=== PATIENT | male | born 1970 | race Caucasian/White ===

== ENCOUNTER 2018-03-03 09:37 | Inpatient (IN) | payer BC, OTHER ==
[~2018-03-03] VITALS: Ht 180.3 cm; Wt 102.7 kg
[2018-03-03 10:31] LABS: BASOPHILS ABSOLUTE AUTO 0.02 K/mm3 (0.00-0.23); BASOPHILS PERCENT AUTO 0 % (0-2); EOSINOPHILS PERCENT AUTO 0 % (0-6); Hematocrit 38.9 % (37.0-53.0); Hemoglobin 13.2 g/dL (13.5-17.5); IMMATURE GRAN ABSOLUTE AUTO 0.04 K/mm3 (0.00-0.10); IMMATURE GRAN PERCENT AUTO 1 % (0-1); LYMPHOCYTES ABSOLUTE AUTO 0.41 K/mm3 (0.84-5.20); LYMPHOCYTES PERCENT AUTO 6 % (21-46); MONOCYTES ABSOLUTE AUTO 0.22 K/mm3 (0.16-1.47); MONOCYTES PERCENT AUTO 3 % (4-13); Mean Corpuscular HGB 29.3 pg (26.0-34.0); Mean Corpuscular HGB Conc 33.9 g/dL (31.5-36.5); Mean Corpuscular Volume 86 fL (80-100); Mean Platelet Volume 9.9 fL (9.1-12.4); NEUTROPHILS ABSOLUTE AUTO 6.76 K/mm3 (1.96-9.15); NEUTROPHILS PERCENT AUTO 91 % (41-73); Platelet Count 201 K/mm3 (150-400); RDW Coefficient Variation 13.5 % (11.7-14.2); RDW Standard Deviation 42.8 fL (35.1-46.3); White Blood Cell Count 7.45 K/mm3 (4.00-11.30)
[2018-03-03 10:44] LABS: Alanine Aminotransfer (ALT/SGP 26 U/L (12-78); Albumin, Blood 2.7 g/dL (3.4-5.0); Albumin/Globulin Ratio 0.6 (0.8-1.8); Alk Phos 93 U/L (50-136); Anion Gap 14 mmol/L (6-16); Aspartate Aminotrans (AST/SGOT 45 U/L (12-37); Bilirubin, Total 0.4 mg/dL (0.1-1.0); Blood Urea Nitrogen 16 mg/dL (8-24); Bun/Creatinine Ratio 14.8 (12.0-20.0); CO2, Blood 23 mmol/L (21-32); Calcium, Blood 8.1 mg/dL (8.5-10.1); Chloride, Blood 92 mmol/L (98-108); Creatinine, Blood 1.08 mg/dL (0.60-1.20); Globulin, Blood 4.4 g/dL (2.2-4.0); Glomerular Filtration Rate >60 (60-); Glucose, Blood 115 mg/dL (70-99); Potassium, Blood 3.3 mmol/L (3.5-5.5); Sodium, Blood 129 mmol/L (136-145); Total Protein, Blood 7.1 g/dL (6.4-8.2)
[2018-03-03] MEDS ORDERED: ASPI81CH PO (15:34)
[2018-03-03 18:17] LABS: PCO2 Arterial 32.8 mmHg (35-45); PO2 Arterial 53.5 mmHg (80-100)
--- NOTE | 2018-03-03 19:05 | NUR ---
ASSUME CARE : PT TRANSFER TO ICU 12 PCU STATUS TRANSFER TO BED USING SLIDER SHEET. MONITOR PLACED SHOWING SINUS TACH. HEART RATE 120'S. BEDSIDE REPORT GIVEN BY DEVORAH ARRINGTON. LUNG SOUNDS TIGHT THROUGHOUT RESPIRATIONS SHALLOW AND RAPID RATE 30'S-40'S. CONTINEOUS COUGH WITH SPO2 80'S. ABDOMEN SOFT WITH BOWEL SOUNDS FOUR QUADS. ON AIRVO AT 40L. REPOSITIONS SELF IN BED. COOPERATIVE TO CARES. CONTINUE TO MONITOR AND REPORT CHANGE IN PATIENT CONDITION. MOD AMT THICK BLOODY SPUTUM EXPECTORATED.
--- NOTE | 2018-03-03 19:46 | NUR ---
TRANSFER PT STARTED HAVING AN INCREASED COUGH AT APPROXIMATLY 1700. HE WAS GIVEN TESSLON PEARLS TO HELP SUPPRESS THE COUGH. PT WAS EVALUATED BY CARMINA REA. O2 SATURATIONS STARTED TO REMAIN BELOW 88% ESPECIALLY WHEN PT WAS COUGHING AND PT HAD DIFFICULTY RECOVERING. OXIMIZER WAS INCREASED TO 15L PER MINUTE AND NEB GIVEN BY CARMINA REA. DR. MUNIZ NOTIFIED AND PT WAS PLACED ON HIGH FLOW NC, ABG DRAWN. ROBITUSSIN WAS GIVEN. PT DID NOT APPEAR TO GET ANY RELIEF AND O2 SATURATIONS REMAINED BELOW 88%. DR. MUNIZ NOTIFIED REGARDING PT STATUS AND ABG RESULTS. PT TRANSFERRED TO ICU WITH PCU STATUS AT APPROXIMATELY 1900. REPORT GIVEN TO DM ARRINGTON AT THE BEDSIDE.
--- NOTE | 2018-03-03 22:30 | NUR ---
SPO2 COUGH HOSPITALIST ANCELMO NOTIFIED OF INCREASED COUGH DECREASING SPO2 CHANGES IN PATIENT CONDITION. ORDERS NOTED. CONTINUE TO MONITOR AND REPORT CHANGE IN PATIENT CONDITION.
[2018-03-04 00:01] LABS: PCO2 Arterial 42.6 mmHg (35-45); PO2 Arterial 43.7 mmHg (80-100); pH Blood Arterial 7.36 (7.35-7.45)
[2018-03-04 02:45] LABS: Adenovirus Not Detected (NOT DETECT); Bordetella pertussis Not Detected (NOT DETECT); Chlamydophila pneumoniae Not Detected (NOT DETECT); Coronavirus 229E Not Detected (NOT DETECT); Coronavirus HKU1 Not Detected (NOT DETECT); Coronavirus NL63 Not Detected (NOT DETECT); Coronavirus OC43 Not Detected (NOT DETECT); Human Metapneumovirus Not Detected (NOT DETECT); Human Rhinovirus/Enterovirus Not Detected (NOT DETECT); Influenza A Not Detected (NOT DETECT); Influenza A/2009-H1 Not Detected (NOT DETECT); Influenza A/H1 Not Detected (NOT DETECT); Influenza A/H3 Not Detected (NOT DETECT); Influenza B Not Detected (NOT DETECT); Mycoplasma pneumoniae Not Detected (NOT DETECT); Parainfluenza Virus 1 Not Detected (NOT DETECT); Parainfluenza Virus 2 Not Detected (NOT DETECT); Parainfluenza Virus 3 Not Detected (NOT DETECT); Parainfluenza Virus 4 Not Detected (NOT DETECT); Respiratory Syncytial Virus Not Detected (NOT DETECT)
[2018-03-04 04:09] LABS: BASOPHILS ABSOLUTE AUTO 0.02 K/mm3 (0.00-0.23); BASOPHILS PERCENT AUTO 0 % (0-2); Hematocrit 36.4 % (37.0-53.0); Hemoglobin 11.8 g/dL (13.5-17.5); LYMPHOCYTES ABSOLUTE AUTO 1.18 K/mm3 (0.84-5.20); LYMPHOCYTES PERCENT AUTO 13 % (21-46); MONOCYTES ABSOLUTE AUTO 0.29 K/mm3 (0.16-1.47); MONOCYTES PERCENT AUTO 3 % (4-13); Mean Corpuscular HGB 28.8 pg (26.0-34.0); Mean Corpuscular HGB Conc 32.4 g/dL (31.5-36.5); Mean Platelet Volume 9.9 fL (9.1-12.4); Platelet Count 186 K/mm3 (150-400); RDW Coefficient Variation 13.9 % (11.7-14.2); RDW Standard Deviation 45.6 fL (35.1-46.3); White Blood Cell Count 8.82 K/mm3 (4.00-11.30)
[2018-03-04 04:14] LABS: EOSINOPHILS PERCENT AUTO 0 % (0-6); IMMATURE GRAN ABSOLUTE AUTO 0.03 K/mm3 (0.00-0.10); IMMATURE GRAN PERCENT AUTO 0 % (0-1); Mean Corpuscular Volume 89 fL (80-100); NEUTROPHILS PERCENT AUTO 83 % (41-73)
[2018-03-04 04:33] LABS: BAND PERCENT MAN 12 % (0-8); BASOPHILS PERCENT MAN 0 % (0-2); EOSINOPHILS PERCENT MAN 0 % (0-6); LYMPHOCYTES ABSOLUTE MAN 0.52 K/mm3 (0.84-5.20); LYMPHOCYTES PERCENT MAN 6 % (21-46); MONOCYTES ABSOLUTE MAN 0.35 K/mm3 (0.16-1.47); MONOCYTES PERCENT MAN 4 % (4-13); NEUTROPHILS ABSOLUTE MAN 7.93 K/mm3 (1.96-9.15); SEG NEUTROPHILS PERCENT MAN 78 % (41-73); TOTAL CELLS COUNTED 100
[2018-03-04 04:40] LABS: Anion Gap 13 mmol/L (6-16); Blood Urea Nitrogen 13 mg/dL (8-24); Bun/Creatinine Ratio 15.2 (12.0-20.0); CO2, Blood 23 mmol/L (21-32); Calcium, Blood 7.6 mg/dL (8.5-10.1); Chloride, Blood 100 mmol/L (98-108); Creatinine, Blood 0.85 mg/dL (0.60-1.20); Glomerular Filtration Rate >60 (60-); Glucose, Blood 102 mg/dL (70-99); Sodium, Blood 136 mmol/L (136-145)
--- NOTE | 2018-03-04 06:30 | NUR ---
SHIFT SUMMARY; RESTS QUIETLY WHEN UNDISTURBED. MONITOR INTACT SHOWING SR/ST HEART RATE 80'S-100'S. AIRVO IN PLACE AT 40L BIPAP IN PLACE AT 12/8 FIO2 100% RATE 30'S-40'S SPO2 86-95% LUNG SOUNDS TIGHT AND DECREASED. COUGH OCC HARSH NOT CONTINOUS PREVIOUSLY IN SHIFT STATES 'FEELING BETTER" STATES SLEPT "SOME" DURING NOC AFTER 0100. ABDOMEN SOFT WITH BOWEL SOUNDS FOUR QUADS. VOIDS BLAKE URINE PER URINAL. REPOSITIONS SELF IN BED. PAS TO LOWER EXTREMITIES. PEDAL PULSES PRESENT. NO EDEMA NOTED. CONTINUE TO MONITOR AND REPORT CHANGE IN PATIENT CONDITION. ON PHONE FOR UPDATE AT 0500. UPDATE GIVEN. REPORT GIVEN TO ON COMMING MURPHY Donahue AT 0710.
--- NOTE | 2018-03-04 07:16 | NUR ---
Recieved report from Norma ARRINGTON. Patient laying supine in bed with HOB at 30 degrees. He is wearing BIPAO 12/8 100% FiO2, RR 30-40 and sats 86-90%. His speech is clear and is able to communicate his needs even while wearing BIPAP. HR 87, 109/73 and MAP >65. He has 20ga IV in LAC, dressing intact and site WNL's and is infusing NS with 20meq of K at 100ml/hr. He also has 18ga IV LW and dressing intact and site WNL's and is flushed and SL. He has SCD's bilateral. BERRIOS but weak. He has Air Vo at bedside if needed BIPAP off. Patient uses urinal appropriately.
[2018-03-04 08:30] LABS: PCO2 Arterial 41.4 mmHg (35-45); PO2 Arterial 49.9 mmHg (80-100); pH Blood Arterial 7.39 (7.35-7.45)
--- NOTE | 2018-03-04 09:30 | NUR ---
Patients kaya were remaining in the 80%'s with RT 's adjustments, called Dr Lindsay and try to get pulmnary comsult and she stated to do ABG. ABG was done and sghe later reviewed and placed Pimn. consult. Dr Lindsay and Dr. Malagon have seen patient. Adjusments made to BIPAP 16/12 100% FiO2 and his sats are low 90%'s. Spouse has been at bedside and Dr Malagon has met and explained plan. RR 30-40.
--- NOTE | 2018-03-04 11:28 | NUR ---
Patients sats are low to mid 90%'s. He tolerated sips of water and is currently resting, RR 30-40, BIPAP 16/12 at 100% FiO2. at bedside. VSS.
--- NOTE | 2018-03-04 13:42 | NUR ---
Patient remains in the low 90%'s since last BIPAP setting change 26/01 100% FiO2. has taken a break and will be back. She filled out POA and Advanced Directive and in chart. VSS. Will continue to monitor.
--- NOTE | 2018-03-04 15:26 | NUR ---
PT worked with patient for short period and sats droped low 80's and had to increase O2 for short period and back down to 11L O2 via HFNC and sast 92%. patient denies any current needs.
--- NOTE | 2018-03-04 17:30 | NUR ---
No significant changes with patient or BIPAP setting. He continues to sat low to mid 90%'s and RR 30-40's and does look tired. He has tolerated liquids well and the replace mask.
--- NOTE | 2018-03-04 19:15 | NUR ---
ASSUME CARE: REPORT RECIEVED FROM OFF GOING RN BENJAMIN. MONITOR INTACT SHOWING SINUS RHYTHM . HEART RATE 90'S. LUNG SOUNDS DECREASED TIGHT RESPIRATIONS REMAIN IN THE 40'S. SPO2 GREATER THAN 90% WITH BIPAP 16/12 AT 1005 FIO2. ABDOMEN SOFT WITH BOWEL SOUNDS FOUR QUADS. VOIDS BLAKE URINE PER URINAL. PAS TO LOWER EXTREMITIES. REPOSITIONS SELF IN BED. TOLERATES [place] WELL . PEDAL PULSES PRESENT NO EDEMA NOTED. CONTINUE TO MONITOR AND REPORT CHANGE IN PATIENT CONDITION.
--- NOTE | 2018-03-04 20:30 | NUR ---
UPDATE: ON PHONE FOR UPDATE. UPDATE GIVEN
[2018-03-05 04:04] LABS: BASOPHILS ABSOLUTE AUTO 0.01 K/mm3 (0.00-0.23); BASOPHILS PERCENT AUTO 0 % (0-2); EOSINOPHILS ABSOLUTE AUTO 0.03 K/mm3 (0.00-0.68); EOSINOPHILS PERCENT AUTO 0 % (0-6); Hematocrit 34.1 % (37.0-53.0); Hemoglobin 11.2 g/dL (13.5-17.5); IMMATURE GRAN ABSOLUTE AUTO 0.02 K/mm3 (0.00-0.10); IMMATURE GRAN PERCENT AUTO 0 % (0-1); LYMPHOCYTES ABSOLUTE AUTO 1.29 K/mm3 (0.84-5.20); LYMPHOCYTES PERCENT AUTO 19 % (21-46); MONOCYTES ABSOLUTE AUTO 0.29 K/mm3 (0.16-1.47); MONOCYTES PERCENT AUTO 4 % (4-13); Mean Corpuscular HGB 29.1 pg (26.0-34.0); Mean Corpuscular HGB Conc 32.8 g/dL (31.5-36.5); Mean Corpuscular Volume 89 fL (80-100); Mean Platelet Volume 10.2 fL (9.1-12.4); NEUTROPHILS ABSOLUTE AUTO 5.15 K/mm3 (1.96-9.15); NEUTROPHILS PERCENT AUTO 76 % (41-73); Platelet Count 184 K/mm3 (150-400); RDW Coefficient Variation 14.1 % (11.7-14.2); RDW Standard Deviation 45.5 fL (35.1-46.3); Red Blood Cell Count 3.85 M/mm3 (4.30-5.90); White Blood Cell Count 6.79 K/mm3 (4.00-11.30)
[2018-03-05 04:25] LABS: Anion Gap 8 mmol/L (6-16); Blood Urea Nitrogen 11 mg/dL (8-24); Bun/Creatinine Ratio 14.1 (12.0-20.0); CO2, Blood 28 mmol/L (21-32); Calcium, Blood 7.5 mg/dL (8.5-10.1); Chloride, Blood 101 mmol/L (98-108); Creatinine, Blood 0.78 mg/dL (0.60-1.20); Glomerular Filtration Rate >60 (60-); Glucose, Blood 119 mg/dL (70-99); Potassium, Blood 3.8 mmol/L (3.5-5.5); Sodium, Blood 137 mmol/L (136-145)
[2018-03-05 04:47] LABS: PCO2 Arterial 40.4 mmHg (35-45); PO2 Arterial 63.4 mmHg (80-100); pH Blood Arterial 7.45 (7.35-7.45)
--- NOTE | 2018-03-05 06:19 | NUR ---
SHIFT SUMMARY: RESTS QUIETLY WHEN UNDISTURBED. MONITOR INTACT SHOWING SINUS RHYTYH SINUS TACH HEART RATE 90'S-100'S. REMAINS ON BIPAP 16/12 100% FIO2 WITH SPO2 READINGS ABOVE 90% RATE REMAINS IN THE 40'S. LUNG SOUNDS TIGHT COARSE WITH DECREASED BASES. ABDOMEN SOFT WITH BOWEL SOUNDS FOUR QUADS. LG LIQUID STOOL ON BEDPAN. PAS OFF AT THIS TIME "taking a break from THEM" REPOSITIONS SELF IN BED. TOLERATES PO FLUIDS WELL. CONTINUE TO MONITOR AND REPORT CHANGE IN PATINET CONDITION. ON PHONE FOR UPDATE UPDATE PRASANTH.
--- NOTE | 2018-03-05 07:45 | NUR ---
START OF SHIFT NOTE: RECEIVED REPORT FROM MURPHY CHAIDEZ, ASSUMED CARE, PATIENT IS LYING IN BED ON BIPAP, RT AT BEDSIDE, BIPAP SETTINGS ARE 16/12 ON FiO2 AT 100 %, PATIENT'S RR IS IN 40s, PATIENT IS A+Ox4, DENIES PAIN AT THIS TIME, REPORTS NO CHEST PAIN/DISCOMFORT OR N/V, ABLE TO GET UP TO BSC FOR BMs, NSR/ST, LS ARE COARS AND TIGHT, AND EXTREMELY DIMINSHED IN BASES, BTs ARE PRESENT, PATIENT IS RECEIVING VANCO, ZOSYN, AZITHROMYCIN, PIVs x3 ON L FA AND AC, INFUSING NS WITH 20 KCL AT 50 CC/HR, USES URINAL, AFEBRILE, CALL LIGHT IN REACH, WILL CONTINUE TO MONITOR.
--- NOTE | 2018-03-05 08:10 | NUR ---
DR. MENDES IN TO SEE PATIENT, NEW ORDERS RECIEVED, PATIENT CHANGED TO CLEAR LIQUID DIET, AND MAY BE PLACED ON HIGHEST SETTING ON AIRVO FOR MEALS, THEN BACK TO BIPAP.
--- NOTE | 2018-03-05 09:27 | NUR ---
DR. MUNIZ IN TO SEE PATIENT, NO NEW ORDERS RECEIVED.
--- NOTE | 2018-03-05 10:50 | NUR ---
RT AT BEDSIDE, FiO2 ON BIPAP DECREASED TO 80 %, VISITORS AT BEDSIDE, PATIENT TOLERATING WELL, CALL LIGHT IN REACH, WILL CONTINUE TO MONITOR.
[2018-03-05 12:45] LABS: Vancomycin, Trough 5.3 ug/mL (5.0-10.0)
--- NOTE | 2018-03-05 13:39 | NUR ---
PATIENT CONTINUES TO BE ON BIPAP FiO2 70 %, WAS BRIEFLY PLACED ON AIRVO FOR ORAL CARE, BUT DESATED QUCIKLY AND PLACED BACK ON BIPAP, O2 SATS AT 97 %, PATIENT USES URINAL TO VOID AND HAD 525 CC OUT, CALL LIGHT IN REACH, WILL CONTINUE TO MONITOR.
--- NOTE | 2018-03-05 18:02 | NUR ---
SHIFT SUMMARY NOTE: NEO CONTINUES TO BE ON BIPAP, SETTINGS ARE 16/12 FiO2 AT 40 %, PATIENT IS SATING IN MID 90s, NSR, LUNG SOUNDS DIMINISHED, TIGHT AND COARSE THROUGHOUT, RR ELEVATED IN 30s TO 40s, PATIENT IS ON A CLEAR LIQUID DIET, BUT NOT ABLE AT THIS TIME TO BE OFF BIPAP AND ON AIRVO LONG ENOUGH TO EAT, ORAL CARE WAS PERFORMED, AND PATIENT WAS SHAVED FOR BETTER SEAL ON BIPAP MASK, HE USES THE URINAL, URINE IS CLEAR BUT BLAKE COLORED, UNABLE TO COLLET SPUTUM SAMPLE FROM PATIENT AT THIS TIME, D/T DRY COUGH, PATIENT IS RECEIVING ZOSYN, VANCOMYCIN, AZITHROMYCIN, AND SOLUMEDROL AT THIS TIME, NS WITH 20 kcl INFUSING AT 50 CC/HR, PARTNER AND PARENTS AT BEDSIDE TODAY, UPDATED BY DR. MENDES AND DR. MUNIZ, PIVS ON LUE x 3, ALL FLUSHING AND INFUSING WELL, PATIENT IS ALERT AND ORIENTED, COOPERATIVE, AND ABLE TO MAKE ALL NEEDS KNOWN, USES CALL LIGHT APPROPRIATELY, PATIENT WAS RESTING MOST OF THE DAY, FOR DETAILS SEE SHIFT ASSESSMENT DOCUMENTATION, CALL LIGHT IN REACH, WILL CONTINUE TO MONITOR AND GIVE REPORT TO ONCOMING AWNING INSTALLER.
--- NOTE | 2018-03-05 19:54 | NUR ---
ASSUMED CARE OF PT PT ALERT AND ORIENTED. SATS IN THE LOW 90'S ON BIPAP 16/12 45%. PT ON CLEAR LIQUID DIET AND ABLE TO TOLERATE SMALL SIPS OF SODA BEFORE O2 SATS DROP. PT USING URINAL UNASSISTED WITH NO PROBLEMS. PT HAS HIGH RR IN THE MID 30'S TO LOW 40'S. PT IS ABLE TO FOLLOW COMMANDS AND IS REDIRECTABLE WHEN REMINDING TO SLOW BREATHING. PT AFEBRILE AT THIS POINT THOUGH DIAPHORETIC. LUNG SOUNDS COARSE RADHA AND CLEAR BUT DIMINISHED IN LLL, RUL, RLL. SEE FULL SHIFT ASSESSMENT.
--- NOTE | 2018-03-05 20:37 | NUR ---
PT'S SIGNIFICANT OTHER CALLED FOR UPDATE. UPDATED HER ON PT'S CONDITION.
[2018-03-06 03:44] LABS: BASOPHILS ABSOLUTE AUTO 0.01 K/mm3 (0.00-0.23); BASOPHILS PERCENT AUTO 0 % (0-2); EOSINOPHILS PERCENT AUTO 0 % (0-6); Hematocrit 33.7 % (37.0-53.0); Hemoglobin 10.9 g/dL (13.5-17.5); IMMATURE GRAN ABSOLUTE AUTO 0.04 K/mm3 (0.00-0.10); IMMATURE GRAN PERCENT AUTO 1 % (0-1); LYMPHOCYTES ABSOLUTE AUTO 0.81 K/mm3 (0.84-5.20); LYMPHOCYTES PERCENT AUTO 15 % (21-46); MONOCYTES ABSOLUTE AUTO 0.13 K/mm3 (0.16-1.47); MONOCYTES PERCENT AUTO 2 % (4-13); Mean Corpuscular HGB 28.7 pg (26.0-34.0); Mean Corpuscular HGB Conc 32.3 g/dL (31.5-36.5); Mean Corpuscular Volume 89 fL (80-100); Mean Platelet Volume 10.2 fL (9.1-12.4); NEUTROPHILS ABSOLUTE AUTO 4.61 K/mm3 (1.96-9.15); NEUTROPHILS PERCENT AUTO 82 % (41-73); Platelet Count 165 K/mm3 (150-400); RDW Coefficient Variation 14.3 % (11.7-14.2); RDW Standard Deviation 46.3 fL (35.1-46.3)
[2018-03-06 04:03] LABS: Anion Gap 8 mmol/L (6-16); Blood Urea Nitrogen 16 mg/dL (8-24); Bun/Creatinine Ratio 24.8 (12.0-20.0); CO2, Blood 27 mmol/L (21-32); Chloride, Blood 105 mmol/L (98-108); Creatinine, Blood 0.65 mg/dL (0.60-1.20); Glomerular Filtration Rate >60 (60-); Glucose, Blood 164 mg/dL (70-99); Potassium, Blood 4.2 mmol/L (3.5-5.5); Sodium, Blood 140 mmol/L (136-145)
[2018-03-06 05:21] LABS: PO2 Arterial 83.3 mmHg (80-100); pH Blood Arterial 7.42 (7.35-7.45)
--- NOTE | 2018-03-06 05:59 | NUR ---
SHIFT SUMMARY NO ACUTE CHANGES OVERNIGHT. PT RESTED QUIETLY WITH ONE BRIEF EPISODE OF COUGHING THAT WAS TREATED WITH TESSALON. PT REMAINED ON BIPAP 16/12 FIO2 OF 45%. PT'S SATS REMAINED IN THE MID TO UPPER 90'S. VSS THROUGHOUT SHIFT WITH SHORT PERIODS OF BRADYCARDIA. PT WAS AFEBRILE AND DENIED PAIN. PT TOLERATED BIPAP REMOVAL FOR VERY SHORT PERIODS OF TIME (i.e. to take sips of water) BUT QUICKLY BECAME TACHYPNEIC. PT HAD 300 ML OF DARK BLAKE URINE. WILL REPORT TO DAYSHIFT NURSE.
--- NOTE | 2018-03-06 07:15 | NUR ---
START OF SHIFT NOTE: PATIENT IS AWAKE AND ALERT AND ORIENTED, CONTINUES TO BE ON BIPAP, SETTINGS ARE 16/8, WITH FiO2 OF 45 %, PATIENT APPEARS MUCH CALMER AND BREATHING AT A LOWER RATE THAN PREVIOUSLY, LESS ANXIOUS, BIPAP MASK ADJUSTED, LS ARE CLEAR BUT DIMINISHED ON RIGHT, COARSE AND SLIGHTLY WHEEZY ON LEFT, PATIENT IS IN NSR, HYPOTENSIVE BTs, USES URINAL TO VOID, NS WITH 20 KCL INFUSING AT 50 CC/HR, CALL LIGHT IN REACH, WILL CONTINUE TO MONITOR.
--- NOTE | 2018-03-06 08:34 | NUR ---
PATIENT WAS PLACED ON AIRVO BRIEFLY TO BE ABLE TO EAT BREAKFAST, PATIENT DID WELL, O2 SATS REMAINED AT MID 90s TO 98 %, ATE 100 % OF BREAKFAST, PATIENT HAD NO PROBLEMS SWALLOWING, PLACED BACK ON BIPAP AT FiO2 45 %, PATIENT HAS OCCASIONAL COUGH THAT IS NONPRODUCTIVE, CALL LIGHT IN REACH, WILL CONTINUE TO MONITOR.
--- NOTE | 2018-03-06 09:08 | NUR ---
AT BEDSIDE, UPDATED ON PATIENT STATUS, DR. MUNIZ IN TO SEE PATIENT, ALSO UPDATE , CALL LIGHT IN REACH, WILL CONTINUE TO MONITOR.
--- NOTE | 2018-03-06 12:27 | NUR ---
PATIENT WAS PLACED ON AIRVO 59 L/MIN WITH 50 % O2 TO EAT LUNCH, HIS O2 SATS REMAIN BETWEEN 98 TO 100 %, EATING WITH GOOD APPETITE, AT BEDSIDE, CALL LIGHT IN REACH, WILL CONTINUE TO MONITOR.
[2018-03-06 13:18] LABS: Vancomycin, Trough 8.5 ug/mL (5.0-10.0)
--- NOTE | 2018-03-06 13:33 | NUR ---
PATIENT WAS OFF BIPAP AND ON AIRVO FOR ABOUT ONE HOUR, DURING THIS TIME HE ATE LUNCH AND RECEIVED A BEDBATH WITH SHAVE, VISITORS AT BEDSIDE, PATIENT STARTED TO COUGH, RECEIVED SOME TESSLON PILLS, AND WAS PLACED BACK ON BIPAP, O2 SATURATION AT 98 %, CALL LIGHT IN REACH, WILL CONTINUE TO MONITOR.
--- NOTE | 2018-03-06 17:52 | NUR ---
SHIFT SUMMARY NOTE: PATIENT CONTINUES TO BE MOSTLY ON BIPAP, SETTINGS ARE 16/12 WITH FiO2 OF 40 %, BUT SWITCHES TO AIRVO AT 60 L/MIN AND 83 % O2 WHILE EATING, O2 SATS REMAIN ABOVE 95 %, PATIENT HAS BEEN ADVANCED TO FULL LIQUID DIET AND IS TOLERATING EXTREMELY WELL, , PARENTS AND FRIENDS AT BEDSIDE TODAY, PATIENT TOLERATED WELL, NSR, WITH HR IN 60s TO 70s, USES URINAL TO VOID CLEAR BLAKE COLORED URINE, FOR DETAILS SEE SHIFT ASSESSMENT DOCUMENTATION AND PATIENT NOTES, CALL LIGHT IN REACH, WILL CONTINUE TO MONITOR AND GIVE REPORT TO ONCOMING PATTERN ASSEMBLER.
[2018-03-07 03:55] LABS: BASOPHILS ABSOLUTE AUTO 0.01 K/mm3 (0.00-0.23); BASOPHILS PERCENT AUTO 0 % (0-2); EOSINOPHILS PERCENT AUTO 0 % (0-6); Hematocrit 32.1 % (37.0-53.0); Hemoglobin 10.5 g/dL (13.5-17.5); IMMATURE GRAN ABSOLUTE AUTO 0.07 K/mm3 (0.00-0.10); IMMATURE GRAN PERCENT AUTO 1 % (0-1); LYMPHOCYTES ABSOLUTE AUTO 0.73 K/mm3 (0.84-5.20); LYMPHOCYTES PERCENT AUTO 9 % (21-46); MONOCYTES ABSOLUTE AUTO 0.28 K/mm3 (0.16-1.47); MONOCYTES PERCENT AUTO 3 % (4-13); Mean Corpuscular HGB 29.5 pg (26.0-34.0); Mean Corpuscular HGB Conc 32.7 g/dL (31.5-36.5); Mean Corpuscular Volume 90 fL (80-100); Mean Platelet Volume 10.5 fL (9.1-12.4); NEUTROPHILS ABSOLUTE AUTO 7.26 K/mm3 (1.96-9.15); NEUTROPHILS PERCENT AUTO 87 % (41-73); Platelet Count 224 K/mm3 (150-400); RDW Coefficient Variation 14.4 % (11.7-14.2); Red Blood Cell Count 3.56 M/mm3 (4.30-5.90); White Blood Cell Count 8.35 K/mm3 (4.00-11.30)
[2018-03-07 04:12] LABS: Anion Gap 6 mmol/L (6-16); Blood Urea Nitrogen 18 mg/dL (8-24); Bun/Creatinine Ratio 29.5 (12.0-20.0); CO2, Blood 28 mmol/L (21-32); Calcium, Blood 8.1 mg/dL (8.5-10.1); Chloride, Blood 109 mmol/L (98-108); Creatinine, Blood 0.61 mg/dL (0.60-1.20); Glomerular Filtration Rate >60 (60-); Glucose, Blood 191 mg/dL (70-99); Potassium, Blood 4.1 mmol/L (3.5-5.5); Sodium, Blood 143 mmol/L (136-145)
--- NOTE | 2018-03-07 05:51 | NUR ---
SHIFT SUMMARY NO ACUTE CHANGES OVERNIGHT. PT RESTED COMFORTABLY WITH ONE BRIEF EPISODE OF A DRY COUGH AT BEGINNING OF SHIFT. PT GIVEN TESSALON AND DID NOT EXPERIENCE ANY ADDITIONAL COUGHING EPISODES THROUGH REMAINDER OF SHIFT. PT REMAINS ALERT AND ORIENTED AND ABLE TO APPROPRIATELY RESPOND TO QUESTIONS. PT ABLE TO TOLERATE BEING OFF OF BIPAP FOR SHORT PERIODS OF TIME TO DRINK LIQUIDS. PT DENIES ANY INCREASED SOB OR WORK OF BREATHING. PT REMAINS ON BIPAP / FI02 40%. VSS OVERNIGHT. 500 ML OF DARK BLAKE URINE OUTPUT. WILL REPORT TO DAYSHIFT NURSE.
--- NOTE | 2018-03-07 07:44 | NUR ---
CARE ASSUMED CARE AND REPORT ASSUMED FROM TSERING ARRINGTON. PT LAYING IN BED WITH HOB ELEVATED AND WATCHING TV. DENIES PAIN WHEN ASKED. OFFERED TO TAKE BREAK FROM BIPAP AND WHERE HFNC, PT REFUSED AT THIS TIME. AFEBRILE. NSR 50-60S. SPO2 94% ON BIPAP /, 40%. LUNG SOUNDS CLEAR AND DIMINISHED. REFUSED ORAL CARE AT THIS TIME. NICOTINE PATCH CHANGED. NO SIGNS OF RESP DISTRESS. WILL CONTINUE TO MONITOR.
--- NOTE | 2018-03-07 08:39 | NUR ---
REASSESSMENT MD SHANKS BEDSIDE. PT TOLERATING HFNC. FIO2 CHANGED TO 40% BY . SPO2 90-92%. RT RICHEY NOTIFIED.
--- NOTE | 2018-03-07 12:42 | NUR ---
REASSESSMENT NO ACUTE DISTRESS; NO SIGNS OF RESP DITRESS. DENIES PAIN AT THIS TIME. VSS. NSR 60S AND BP WNL. AFEBRILE. TOLERATING SITTING IN CHAIR. CURRENTLY ON 60L HFNC WITH 60% FIO2. WILL CONTINUE TO MONITOR.
--- NOTE | 2018-03-07 13:05 | NUR ---
TRANSFER REPORT GIVEN TO SALLIE WILLIAM RN. PT TO BE TRANSFERRED TO PCU 14 WITH RN AND RAIL CAR PAINTER/SANDBLASTER. WILL NOTIFY RT OF AIRVO.
--- NOTE | 2018-03-07 18:53 | NUR ---
END OF SHIFT PT HAS HAD NO CHANGES TO THE ASSESSMENT, VSS, PT HAS NO PAIN THROUGHT THE SHIFT, PT O2 GOES UP WITH AMBULATION, VSS, PT AIRVO IS TIRTRATING DOWMN
[2018-03-08 04:03] LABS: BASOPHILS ABSOLUTE AUTO 0.01 K/mm3 (0.00-0.23); BASOPHILS PERCENT AUTO 0 % (0-2); EOSINOPHILS PERCENT AUTO 0 % (0-6); Hematocrit 33.2 % (37.0-53.0); Hemoglobin 10.8 g/dL (13.5-17.5); IMMATURE GRAN ABSOLUTE AUTO 0.07 K/mm3 (0.00-0.10); IMMATURE GRAN PERCENT AUTO 1 % (0-1); LYMPHOCYTES ABSOLUTE AUTO 1.19 K/mm3 (0.84-5.20); LYMPHOCYTES PERCENT AUTO 14 % (21-46); MONOCYTES ABSOLUTE AUTO 0.35 K/mm3 (0.16-1.47); MONOCYTES PERCENT AUTO 4 % (4-13); Mean Corpuscular HGB Conc 32.5 g/dL (31.5-36.5); Mean Corpuscular Volume 89 fL (80-100); Mean Platelet Volume 10.5 fL (9.1-12.4); NEUTROPHILS ABSOLUTE AUTO 6.83 K/mm3 (1.96-9.15); NEUTROPHILS PERCENT AUTO 81 % (41-73); Platelet Count 294 K/mm3 (150-400); RDW Coefficient Variation 14.6 % (11.7-14.2); RDW Standard Deviation 47.5 fL (35.1-46.3); Red Blood Cell Count 3.73 M/mm3 (4.30-5.90); White Blood Cell Count 8.45 K/mm3 (4.00-11.30)
[2018-03-08 04:21] LABS: Anion Gap 6 mmol/L (6-16); Blood Urea Nitrogen 19 mg/dL (8-24); Bun/Creatinine Ratio 28.3 (12.0-20.0); CO2, Blood 28 mmol/L (21-32); Calcium, Blood 8.2 mg/dL (8.5-10.1); Chloride, Blood 106 mmol/L (98-108); Creatinine, Blood 0.67 mg/dL (0.60-1.20); Glomerular Filtration Rate >60 (60-); Glucose, Blood 166 mg/dL (70-99); Magnesium, Blood 2.5 mg/dL (1.6-2.4); Phosphorus, Blood 3.7 mg/dL (2.5-4.9); Potassium, Blood 4.2 mmol/L (3.5-5.5); Sodium, Blood 140 mmol/L (136-145)
--- NOTE | 2018-03-08 05:50 | NUR ---
SHIFT SUMMARY PATIENT PLEASENT AND COOPERATIVE THROUGHOUT THE NIGHT. PATIENT APPEARED TO SLEEP WELL THROUGHOUT THE NIGHT. PATIENT HAS BEEN ON THE BIPAP FOR MOST OF THE NIGHT. PATIENT USING THE AIRVO WHEN AWAKE. PATIENT STATED THAT HE FELT MOST COMFORTABLE USING THE BIPAP WHILE HE SLEPT. VITAL SIGNS CHARTED. ABX GIVEN PER EMAR. PATIENT CURRENTLY APPEARS TO BE SLEEPING WELL BIPAP AND CONTINOUS BIOX IN PLACE. WILL CONTINUE TO MONITOR PATIENT AND REPORT TO ONCOMING RN.
--- NOTE | 2018-03-08 19:14 | NUR ---
END OF SHIFT PT HAS HAD O2 TITRATED DOWN, VSS, PT HAS HAD NO CHANGES TO THE ASSESSMENT, PT ABLE TO MABULATE TO THE BATHROOM
--- NOTE | 2018-03-09 06:26 | NUR ---
SHIFT SUMMARY PT ADMITTED FOR RESP FAILURE AND LEFT UPPER LOBE PNEUMONIA. HE HAS BEEN ABLE TO BE TITRATED DOWN ON HIS FIO2 WITH THE AIRVO DURING THE DAY AND BIPAP AT HS. HIS SOB IS IMPROVING. LUNGS SOUND DIM T/O. PT IS A&O, ABLE TO MAKE NEEDS KNOWN. CXR TAKEN THIS MORNING. PT ROSALIO ON TELE W/ PACs. WILL CTM UNTIL PASS TO NEXT SHIFT.
--- NOTE | 2018-03-09 11:14 | NUR ---
AM NOTE PT AWAKE VISITING WITH FAMILY. TOLERATING AIR VO WELL. VSS. MILD DESAT WITH WALKING TO [place]. SBA WITH ACTIVITY D/T LINE MANAGEMENT. DEEP, DRY COUGH. PT IS USING THE FLUTTER VALVE. DENIED PAIN OR DISCOMFORT SO FAR TODAY. CONTINUE POT.
--- NOTE | 2018-03-10 05:54 | NUR ---
SUMMARY NO ACUTE CHNAGES FROM ASSESSMENT. PT HAS SLEPT WITH NO PROBLEMS. CALLS FOR ASSISTANCE TO THE BATHROOM NEEDED. VOIDING WNL. CPAP IN PLACE. DENIES CP. STAND BY ASSIST. CALL LIGHT IN REACH. WCTM
--- NOTE | 2018-03-10 15:11 | NUR ---
NOTE PT UP ALL DAY IN CHAIR. R/T IS WEANING THE AIRVO. VSS. VOIDING WELL. PT STEADY ON HIS FEET. NEEDS ASSIST WITH CORDS AND STUFF. AT BEDSIDE. SHE BROUGHT HIM A MILK SHAKE. CONTINUE POT.
--- NOTE | 2018-03-11 05:15 | NUR ---
SHIFT SUMMARY PT A&O X4, CALM AND COOPERATIVE. PT EXPRESSES EAGERNESS TO TITRATE O2 DOWN AND GO HOME. LUNG SOUNDS DIM T/O. SPO2 > 90% ON AIRVO @ 60L. RT STATES INABILITY TO WEAN PT DOWN. PT REFUSING BIPAP THIS SHIFT. MONITOR SHOWS, SB/SR, HR 50'S-60'S. PT USING FLUTTER VALVE AND INCENTIVE SPIROMETER AT BEDSIDE. SBA W/ BRP. WILL CONTINUE TO MONITOR AND PROVIDE CARE UNTIL REPORT OFF TO DAY SHIFT RN.
--- NOTE | 2018-03-11 09:00 | NUR ---
Initial assessment: Pt resting in bed on 3L per N/C. States that he is feeling good. LS diminished throughout. BT positive. HR reg. Pulses palp. Pt denies pain. VSS. BIox 93% on 3L. Call light in reach. Denies needs. Will monitor.
[2018-03-11 11:05] LABS: Hematocrit 41.7 % (37.0-53.0); Hemoglobin 13.5 g/dL (13.5-17.5); Mean Corpuscular HGB 28.9 pg (26.0-34.0); Mean Corpuscular HGB Conc 32.4 g/dL (31.5-36.5); Mean Corpuscular Volume 89 fL (80-100); Mean Platelet Volume 10.4 fL (9.1-12.4); Platelet Count 419 K/mm3 (150-400); RDW Coefficient Variation 14.3 % (11.7-14.2); Red Blood Cell Count 4.67 M/mm3 (4.30-5.90); White Blood Cell Count 14.04 K/mm3 (4.00-11.30)
--- NOTE | 2018-03-11 18:47 | NUR ---
SHift summary: Pt sitting up in bed at this time. Pt has done very well this shift. He has worked on his IS and Flutter valves frequently. VS have remained stable. Oxygen was able to be titrated down to 1L per N/C. Pt now independent in his room. Was able to get up and ambulate around unit 3 times without becoming SOB or desaturating. Pt hopeful for discharge to home tomorrow. Will report to night rn. Stable at end of shift.
--- NOTE | 2018-03-11 20:45 | NUR ---
PATIENT UPDATE PATIENT TRANSFERRED TO SURGICAL AT APPROX 2030. WALKED TO SURGICAL UNDER HIS OWN POWER. DENIED ANY NEEDS. PT BALANCED AND STEADY GAIT DURING AMBULATION.
--- NOTE | 2018-03-11 20:54 | NUR ---
TRANSFER FROM [facility] TO 219. REC REPORT FROM ULISES ARRINGTON. PT AMBULATED INDEPEND FROM PCU TO ROOM. HE IS ON 1L O2 VIA NC TO MAINTAIN SATS > 90%. DENIES SOB. RESP E/U. HE IS SHOWERING NOW. VSS.
--- NOTE | 2018-03-11 21:58 | NUR ---
OWN SHOWER WITHOUT O2. PATIENT IN BED WITH 02 BACK ON. REDTING WITH EYES CLOSED.
--- NOTE | 2018-03-11 22:52 | NUR ---
TRANSFERED CARE TO NEXT RN. NO ACUTE CHANGES NOTED SINCE HIS TRANSFER FROM PCU. PT APPEARS TO BE RESTING COMFORTABLY. NO S/SX OF DISTRESS. DENIES SOB. ON 1L O2 VIA NC. HE TOLERATED SHOWERING WELL AND IS ABLE TO ABULATE INDEPEND.
--- NOTE | 2018-03-11 23:00 | NUR ---
ASSUMED CARE OF PT. CURRENTLY SLEEPING, NO RESP DISTRESS. ON 1L NC. WILL CONT TO MONITOR.
--- NOTE | 2018-03-12 06:05 | NUR ---
PCU TRANSFER THIS SHIFT. PT HAS DONE WELL AND SLEPT T/O NIGHT ON 1L NC AND TOELRATED WELL. POSSIBLE DC HOME TODAY. CALL LIGHT IN REACH. PT INDEPENDENT IN ROOM.
--- NOTE | 2018-03-12 10:53 | NUR ---
PATIENT AMBULATED > 200'. BIOX REMAINED AT 92% ON RA. DENIES SOB.
[2018-03-12] MEDS ORDERED: (None)20 M1 PO (11:53)
[2018-03-12] MEDS ORDERED: AMOX875 PO (11:54)
[2018-03-12] MEDS ORDERED: NICO21TP TOP (11:56)
--- NOTE | 2018-03-12 12:30 | NUR ---
PATIENT D/C'D HOME WITH AT THIS TIME; BOTH STATE UNDERSTANDING OF MEDS, ACTIVITY, PULMONARY TOILET, F/U APPTS, ETC. SATS 92% ON RA, LS CLEAR, DECREASED IN BASES. AMBULATING W/O C/O SOB OR [id number]. NO ACUTE CHANGES OR C/O AT THIS TIME. RX CALLED TO [facility].
== END 2018-03-12 12:43 | disposition home or self-care (01) | DRG 871 ==
LOC: ER 09:37 → ICUW 11:48 → ERHOLD 11:48 → SURS 11:48 → ICUW 14:39 → MEDS 14:47 → ICUW 18:59 → PCU 03-07 13:16 → SURS 03-11 20:45
PROVIDERS: Hospitalist; Internal Medicine; Internal Medicine Critical Care Medicine; ADMIT Internal Medicine
PROC: 5A09357 Assistance with Respiratory Ventilation, Less than 24 Consecutive Hours, Continuous Positive Airway Pressure (ICD-10-PCS; principal; 2018-03-04)
DX: A41.01 Sepsis due to Methicillin susceptible Staphylococcus aureus (principal); J96.01 Acute respiratory failure with hypoxia; J15.29 Pneumonia due to other staphylococcus; E87.1 Hypo-osmolality and hyponatremia; F17.200 Nicotine dependence, unspecified, uncomplicated; E66.9 Obesity, unspecified; Z68.33 Body mass index [BMI] 33.0-33.9, adult; E87.6 Hypokalemia; J43.9 Emphysema, unspecified
CPT/HCPCS: 36415; 36600; 71045; 71260; 80048; 80053; 80202; 82803; 83605; 83735; 84100; 84145; 85025; 85027; 85379; 87040; 87070; 87205; 87449; 87486; 87581; 87633; 87798; 94640; 94644; 94660; 94667; 94762; 96361; 96374; 96375; 99285-25; C9113; J0456; J0696; J1650; J2060; J2543; J2920; J3370; J3480; J7050; J7120; Q9967